=== PATIENT | male | born 1950 | race Caucasian/White ===

== ENCOUNTER 2020-04-28 13:47 | Emergency (ER) | payer MEDICARE, BC ==
[2020-04-28] MEDS ORDERED: Aspirin 81 MG Tab.Chew PO ONE (14:59)
[2020-04-28] MEDS ORDERED: Sodium Chloride 0.9% 10 ML Syringe FLUSH PRN (14:59)
--- NOTE | 2020-04-28 15:11 | EDM.PDOC ---
<Isaac Hoskins Adriana - Last Filed: 04/28/20 14:56> ED HPI GENERAL MEDICAL PROBLEM - General Chief Complaint: Chest Pain Stated Complaint: CHEST PAIN Time Seen by Provider: 04/28/20 14:06 - History of Present Illness INITIAL COMMENTS - FREE TEXT/NARRATIVE: Patient is a 70 year-old white male that comes to the emergency department today due to complaints of new onset chest pain. Patient has no personal history of cardiac disease or complication. However, there is a strong family history of cardiac and vascular disease with his grandfather dying of an SD at age 70, his father at age 66 after his 3rd SD, and his younger brother at age 48 after 1 SD. His grandmother of a brain aneurism at age 74. Prior to today patient has never experiences chest pain. He noticed the pain the morning around 0200 when he woke up to go to work. He felt the pain in his back initially and though that he had slept wrong last night. The pain became more prominent and localied in his left chest after going to work. 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 Patient denies pain in his neck, jaw, or radiating to his left arm. Denies any N/V/D or other abdominal discomfort. Denies becoming diaphoretic. Denies difficulty voiding. Patient denies any recent heavy lifting or strenuous exercise physical activity. Patient denies smoking and drinks 1 glass of wine with his supper each evening. He drinks 2 cups of coffee each morning. He has a history of diverticulitis with a 12 inch bowel resection in 2011 as well as bilateral inguinal hernia repair. He has had no complications from these procedures. Left Chest Pain Score (Numeric/FACES): 3 - Related Data Allergies Allergy/AdvReac Type Severity Reaction Status Date / Time No Known Allergies Allergy Verified 04/28/20 14:04 Home Meds: Home Meds Levothyroxine 25 mcg PO QAM 07/20/14 [History] Omeprazole [Prilosec] 20 mg PO BID 07/20/14 [History] Simvastatin [Zocor] 40 mg PO DAILY 07/20/14 [History] Multivitamin [Poly-Vitamin] 1 tab PO DAILY 10/07/16 [History] Past Medical History HEENT History: Reports: Cataract, Impaired Vision Other HEENT History: wears eyeglasses Cardiovascular History: Reports: High Cholesterol Respiratory History: Reports: TB Other Respiratory History: Severe Snoring with witnessed apnea Gastrointestinal History: Reports: Diverticulosis, GERD Other Gastrointestinal History: bilateral hernias Genitourinary History: Reports: Prostate Disorder Musculoskeletal History: Reports: None Neurological History: Reports: None Psychiatric History: Reports: None Endocrine/Metabolic History: Reports: Hypothyroidism Oncologic (Cancer) History: Reports: Prostate Other Oncologic History: radiation - Infectious Disease History Infectious Disease History: Reports: Chicken Pox, Measles, Mumps - Past Surgical History HEENT Surgical History: Reports: Adenoidectomy, Tonsillectomy GI Surgical History: Reports: Colonoscopy, Hernia, Inguinal, Other (See Below) Other GI Surgeries/Procedures: colon resection--12" removed, non-healing diverticulitis. Hernia repair. Male Surgical History: Reports: Prostate Biopsy, Other (See Below) Other Male Surgeries/Procedures: radiation Tx's. Social & Family History - Tobacco Use Smoking Status *Q: Never Smoker Second Hand Smoke Exposure: No - Caffeine Use Caffeine Use: Reports: Coffee - Alcohol Use Days Per Week of Alcohol Use: 7 Number of Drinks Per Day: 1 Total Drinks Per Week: 7 - Recreational Drug Use Recreational Drug Use: No ED ROS GENERAL - Review of Systems Review Of Systems: See Below Constitutional: Reports: No Symptoms Respiratory: Reports: No Symptoms Cardiovascular: Reports: Chest Pain (localized left chest) GI/Abdominal: Reports: No Symptoms : Reports: No Symptoms Musculoskeletal: Reports: No Symptoms Skin: Reports: No Symptoms Neurological: Reports: No Symptoms Psychiatric: Reports: No Symptoms ED EXAM, GENERAL - Physical Exam Exam: See Below Exam Limited By: No Limitations General Appearance: Alert, WD/WN, No Apparent Distress Head: Atraumatic Neck: Normal Inspection Respiratory/Chest: No Respiratory Distress, Lungs Clear, Normal Breath Sounds, No Accessory Muscle Use Cardiovascular: Normal Peripheral Pulses, No Edema, No Gallop, No JVD, No Murmur, No Rub. No: JVD, Bradycardia, Tachycardia, Extra Beats Peripheral Pulses: 2+: Radial (L), Radial (R) GI/Abdominal: Normal Bowel Sounds, Soft, Non-Tender Extremities: Normal Inspection, Normal Range of Motion, Non-Tender, No Pedal Edema, Normal Capillary Refill Neurological: Alert, Oriented, CN II-XII Intact, Normal Cognition, Normal Gait, Normal Reflexes, No Motor/Sensory Deficits Psychiatric: Normal Affect, Normal Mood Skin Exam: Warm, Dry, Intact, Normal Color, No Rash EKG INTERPRETATION EKG Date: 04/28/20 Time: 13:57 Rhythm: NSR EKG Interpretation Comments: above 1mm ST depression V4-V5 Course - Orders/Labs/Meds Orders: Will order CBC, CMP, TROP, EKG, & CXR Departure - Departure Disposition: Home, Self-Care 01 Clinical Impression: Atypical chest pain Strain of chest wall Qualifiers: Encounter type: initial encounter Qualified Code(s): S29.011A - Strain of muscle and tendon of front wall of thorax, initial encounter Referrals: Yuan Beverly MD [Primary Care Provider] - Forms: ED Department Discharge Additional Instructions: Avoid heavy lifting for the remainder of this week. Tylenol or ibuprofen if needed, alternate ice and heat as needed. Follow up with your regular medical provider if symptoms do not resolve over the next few days as expected. Return to ED as needed if symptoms worsening in any way. Sepsis Event Note (ED) - Evaluation Sepsis Screening Result: No Definite Risk <Del Graham - Last Filed: 04/28/20 17:46> ED ROS GENERAL - Review of Systems Cardiovascular: Denies: Lightheadedness Neurological: Denies: Dizziness, Numbness, Tingling, Weakness ED EXAM, GENERAL - Physical Exam Cardiovascular: Other (mild tenderness L lateral chest wall, otherwise nontender) Extremities: No: Pedal Edema, Leg Pain, Redness Course - Vital Signs Last Recorded V/S: Last Vital Signs Temp 98.7 F 04/28/20 13:50 Pulse 72 04/28/20 13:50 Resp 16 04/28/20 13:50 BP Pulse Ox 95 04/28/20 13:50 - Orders/Labs/Meds Orders: Active Orders 24 hr Category Date Time Status EKG 12 Lead [EKG Documentation Completion] [RC] STAT Care 04/28/20 14:59 Active Peripheral IV Care [RC] . DIRECTED Care 04/28/20 14:59 Active Sodium Chloride 0.9% [Saline Flush] Med 04/28/20 14:59 Active 10 ml FLUSH ASDIRECTED PRN Peripheral IV Insertion Adult [OM.PC] Stat Oth 04/28/20 14:59 Ordered Medication Orders Sodium Chloride (Saline Flush) 10 ml FLUSH ASDIRECTED PRN PRN Reason: Keep Vein Open Last Admin: 04/28/20 14:05 Dose: 10 ml Documented by: JOSE C Labs: Laboratory Tests 04/28/20 04/28/20 04/28/20 Range/Units 14:05 14:05 16:54 WBC 6.21 (4.23-9.07) K/mm3 RBC 5.28 (4.63-6.08) M/mm3 Hgb 16.4 (13.7-17.5) gm/dl Hct 47.7 (40.1-51.0) % MCV 90.3 (79.0-92.2) fl MCH 31.1 (25.7-32.2) pg MCHC 34.4 (32.2-35.5) g/dl RDW Std Deviation 39.9 (35.1-43.9) fL Plt Count 240 (163-337) K/mm3 MPV 9.9 (9.4-12.3) fl Neut % (Auto) 70.5 H (34.0-67.9) % Lymph % (Auto) 17.7 L (21.8-53.1) % [place] % (Auto) 10.1 (5.3-12.2) % Eos % (Auto) 1.1 (0.8-7.0) Baso % (Auto) 0.3 (0.1-1.2) % Neut # (Auto) 4.37 (1.78-5.38) K/mm3 Lymph # (Auto) 1.10 L (1.32-3.57) K/mm3 [place] # (Auto) 0.63 (0.30-0.82) K/mm3 Eos # (Auto) 0.07 (0.04-0.54) K/mm3 Baso # (Auto) 0.02 (0.01-0.08) K/mm3 Sodium 140 (136-145) mEq/L Potassium 3.5 (3.5-5.1) mEq/L Chloride 103 (98-107) mEq/L Carbon Dioxide 27 (21-32) mEq/L Anion Gap 13.5 (5-15) BUN 11 (7-18) mg/dL Creatinine 1.0 (0.7-1.3) mg/dL Est Cr Clr Drug Dosing 69.96 mL/min Estimated GFR (MDRD) > 60 (>60) mL/min BUN/Creatinine Ratio 11.0 L (14-18) Glucose 130 H (83-115) mg/dL Calcium 8.9 (8.5-10.1) mg/dL Total Bilirubin 0.6 (0.2-1.0) mg/dL AST 25 (15-37) U/L ALT 47 (16-63) U/L Alkaline Phosphatase 130 H (46-116) U/L Troponin I < 0.017 < 0.017 (0.00-0.056) ng/mL Total Protein 7.3 (6.4-8.2) g/dl Albumin 4.0 (3.4-5.0) g/dl Globulin 3.3 gm/dL Albumin/Globulin Ratio 1.2 (1-2) Meds: Medications Generic Name Dose Route Start Last Admin Trade Name Freq PRN Reason Stop Dose Admin Sodium Chloride 10 ml 04/28/20 14:59 04/28/20 14:05 Saline Flush FLUSH 10 ml ASDIRECTED PRN Administration Keep Vein Open Discontinued Medications Generic Name Dose Route Start Last Admin Trade Name Freq PRN Reason Stop Dose Admin Aspirin 324 mg 04/28/20 14:59 04/28/20 15:56 Aspirin PO 04/28/20 15:00 324 mg ONETIME ONE Administration - Re-Assessments/Exams Free Text/Narrative Re-Assessment/Exam: 04/28/20 17:00 Initial hx and exam was done by GAIL Brown student. II agree with hx and exam as documented. I have also interviewed and examined patient. Initial trop was good. CXR, EKG good. Will check a repeat trop. 04/28/20 17:43. repeat trop nl. Patient has been resting comfortably while here in the ED. He did shovel some dirt 3 days ago. The pain is worse with deep breathing and certain types of movement. Discharge instr. as documented. Departure - Departure Time of Disposition: 17:39 Condition: Fair Sepsis Event Note (ED) - Focused Exam Vital Signs: Vital Signs Temp Pulse Resp Pulse Ox 04/28/20 13:50 98.7 F 72 16 95 - My Orders Last 24 Hours: My Active Orders 04/28/20 14:59 EKG 12 Lead [EKG Documentation Completion] [RC] STAT Peripheral IV Care [RC] . DIRECTED Sodium Chloride 0.9% [Saline Flush] 10 ml FLUSH ASDIRECTED PRN Peripheral IV Insertion Adult [OM.PC] Stat - Assessment/Plan Last 24 Hours: My Active Orders 04/28/20 14:59 EKG 12 Lead [EKG Documentation Completion] [RC] STAT Peripheral IV Care [RC] . DIRECTED Sodium Chloride 0.9% [Saline Flush] 10 ml FLUSH ASDIRECTED PRN Peripheral IV Insertion Adult [OM.PC] Stat
--- NOTE | 2020-04-28 15:43 | CR ---
Chest: Single AP view of the chest was obtained. Comparison: Previous chest x-ray of 07/20/14 Heart size and mediastinum are normal. Lungs are clear with no acute parenchymal change. Bony structures are grossly intact. Impression: 1. Nothing acute is seen on AP chest x-ray. Diagnostic code #1 This report was dictated in MDT
[2020-04-28] MEDS ORDERED: HYDROmorphone 0.5 MG/0.5 ML Syringe IVPUSH ONE (16:46)
[2020-04-28 18:08] VITALS: BP 115/94; PULSE 62
== END 2020-04-28 17:55 | disposition home or self-care (01) ==
LOC: JD.ED 13:47
DX: S29.011A Strain of muscle and tendon of front wall of thorax, initial encounter (principal); E78.00 Pure hypercholesterolemia, unspecified; K21.9 Gastro-esophageal reflux disease without esophagitis; E03.9 Hypothyroidism, unspecified; Z79.899 Other long term (current) drug therapy; X50.9XXA Other and unspecified overexertion or strenuous movements or postures, initial encounter
CPT/HCPCS: 36415; 71045; 80053; 84484; 85025; 93005; 99285; A9270

== ENCOUNTER 2021-02-23 15:51 | Emergency (ER) | payer MEDICARE, BC ==
--- NOTE | 2021-02-23 16:35 | EDM.PDOC ---
ED HPI GENERAL MEDICAL PROBLEM - General Chief Complaint: Chest Pain Stated Complaint: CHEST PAIN Time Seen by Provider: 02/23/21 16:26 Source of Information: Reports: Patient, RN Notes Reviewed History Limitations: Reports: No Limitations - History of Present Illness INITIAL COMMENTS - FREE TEXT/NARRATIVE: Patient is a 70-year-old male presenting to the emergency department with complaints of mid chest pain. He reports that around 9:00 this morning he lifted some heavy 2-1/2 gallon jugs of juice. He took a nap and woke around 1300. He reports that upon waking he did not have the pain, however when he started moving he experienced pain throughout his anterior chest. He reports the area is tender when he pushes on it and worse with deep breathing. When he moves his arms, it "pulls on the area ". Denies any significant cardiac history, however he does have a fairly strong family history of cardiac disease. He denies any shortness of breath or diaphoresis associated with this. Reports that he went to [employer] and when the pain still persisted, he decided he should come to the ER to get it checked out. Vital signs as documented by triage nurse on downtime paperwork were normal. - Related Data Allergies Allergy/AdvReac Type Severity Reaction Status Date / Time No Known Allergies Allergy Verified 04/28/20 14:04 Home Meds: Home Meds Levothyroxine 25 mcg PO QAM 07/20/14 [History] Omeprazole [Prilosec] 20 mg PO BID 07/20/14 [History] Simvastatin [Zocor] 40 mg PO DAILY 07/20/14 [History] Multivitamin [Poly-Vitamin] 1 tab PO DAILY 10/07/16 [History] Past Medical History HEENT History: Reports: Cataract, Impaired Vision Other HEENT History: wears eyeglasses Cardiovascular History: Reports: High Cholesterol Respiratory History: Reports: TB Other Respiratory History: Severe Snoring with witnessed apnea Gastrointestinal History: Reports: Diverticulosis, GERD Other Gastrointestinal History: bilateral hernias Genitourinary History: Reports: Prostate Disorder Musculoskeletal History: Reports: None Neurological History: Reports: None Psychiatric History: Reports: None Endocrine/Metabolic History: Reports: Hypothyroidism Oncologic (Cancer) History: Reports: Prostate Other Oncologic History: radiation - Infectious Disease History Infectious Disease History: Reports: Chicken Pox, Measles, Mumps - Past Surgical History HEENT Surgical History: Reports: Adenoidectomy, Tonsillectomy GI Surgical History: Reports: Colonoscopy, Hernia, Inguinal, Other (See Below) Other GI Surgeries/Procedures: colon resection--12" removed, non-healing diverticulitis. Hernia repair. Male Surgical History: Reports: Prostate Biopsy, Other (See Below) Other Male Surgeries/Procedures: radiation Tx's. Social & Family History - Caffeine Use Caffeine Use: Reports: Coffee ED ROS GENERAL - Review of Systems Review Of Systems: See Below Constitutional: Reports: No Symptoms HEENT: Reports: No Symptoms Respiratory: Denies: Shortness of Breath, Cough Cardiovascular: Reports: Chest Pain. Denies: Dyspnea on Exertion, Lightheadedness, Palpitations Endocrine: Reports: No Symptoms GI/Abdominal: Reports: No Symptoms : Reports: No Symptoms Musculoskeletal: Reports: Other (chest wall tenderness) Skin: Reports: No Symptoms Neurological: Reports: No Symptoms Psychiatric: Reports: No Symptoms Hematologic/Lymphatic: Reports: No Symptoms Immunologic: Reports: No Symptoms ED EXAM, GENERAL - Physical Exam Exam: See Below Exam Limited By: No Limitations General Appearance: Alert, WD/WN, No Apparent Distress Respiratory/Chest: No Respiratory Distress, Lungs Clear, Normal Breath Sounds, No Accessory Muscle Use, Other (tenderness to palpation throughout the anterior chest wall) Cardiovascular: Normal Peripheral Pulses, Regular Rate, Rhythm, No Edema, No Gallop, No JVD, No Murmur, No Rub Neurological: Alert, Oriented, CN II-XII Intact, Normal Cognition, Normal Gait, Normal Reflexes, No Motor/Sensory Deficits Psychiatric: Normal Affect, Normal Mood Skin Exam: Warm, Dry, Intact, Normal Color, No Rash #1 Interpretation EKG Date: 02/23/21 Time: 16:08 Rhythm: NSR Rate (Beats/Min): 77 [place]: RAD-Right [place] Deviation P-Wave: Present QRS: Normal ST-T: Normal QT: Normal EKG Interpretation Comments: EKG interpreted by Dr. Jodi MD. Course - Orders/Labs/Meds Labs: Laboratory Tests 02/23/21 02/23/21 02/23/21 Range/Units 16:46 16:46 16:46 WBC 5.70 (4.23-9.07) K/mm3 RBC 5.24 (4.63-6.08) M/mm3 Hgb 16.5 (13.7-17.5) gm/dl Hct 47.8 (40.1-51.0) % MCV 91.2 (79.0-92.2) fl MCH 31.5 (25.7-32.2) pg MCHC 34.5 (32.2-35.5) g/dl RDW Std Deviation 39.8 (35.1-43.9) fL Plt Count 230 (163-337) K/mm3 MPV 9.8 (9.4-12.3) fl Neut % (Auto) 71.4 H (34.0-67.9) % Lymph % (Auto) 16.5 L (21.8-53.1) % [place] % (Auto) 9.5 (5.3-12.2) % Eos % (Auto) 1.8 (0.8-7.0) Baso % (Auto) 0.4 (0.1-1.2) % Neut # (Auto) 4.08 (1.78-5.38) K/mm3 Lymph # (Auto) 0.94 L (1.32-3.57) K/mm3 [place] # (Auto) 0.54 (0.30-0.82) K/mm3 Eos # (Auto) 0.10 (0.04-0.54) K/mm3 Baso # (Auto) 0.02 (0.01-0.08) K/mm3 D-Dimer, Quantitative < 0.19 L (0.19-0.50) mg/L Sodium 141 (136-145) mEq/L Potassium 4.0 (3.5-5.1) mEq/L Chloride 103 (98-107) mEq/L Carbon Dioxide 30 (21-32) mEq/L Anion Gap 12.0 (5-15) BUN 12 (7-18) mg/dL Creatinine 1.1 (0.7-1.3) mg/dL Est Cr Clr Drug Dosing TNP Estimated GFR (MDRD) > 60 (>60) mL/min BUN/Creatinine Ratio 10.9 L (14-18) Glucose 115 H (70-99) mg/dL Calcium 8.9 (8.5-10.1) mg/dL Magnesium 2.2 (1.8-2.4) mg/dL Total Bilirubin 0.5 (0.2-1.0) mg/dL AST 21 (15-37) U/L ALT 35 (16-63) U/L Alkaline Phosphatase 131 H (46-116) U/L Troponin I < 0.017 (0.00-0.056) ng/mL Total Protein 7.2 (6.4-8.2) g/dl Albumin 4.1 (3.4-5.0) g/dl Globulin 3.1 gm/dL Albumin/Globulin Ratio 1.3 (1-2) Meds: Medications Discontinued Medications Generic Name Dose Route Start Last Admin Trade Name Jackie PRN Reason Stop Dose Admin Aspirin 324 mg 02/23/21 16:37 02/23/21 16:55 Aspirin 81 Mg Tab.Chew PO 02/23/21 16:38 324 mg ONETIME ONE Administration - Re-Assessments/Exams Free Text/Narrative Re-Assessment/Exam: Patient is a 70-year-old male presenting to the emergency department with complaints of pain and tenderness to his anterior chest wall. He reports lifting some heavy jugs of rhubarb juice for wine making around 9:00 this morning. After taking a nap, he awoke pain-free but once he started moving around he felt discomfort in his chest. He reports his chest wall is tender to palpation and it worsens with deep breathing. If he lifts his arms it "pulls in the area ". He has no significant cardiac history but does have apparent fairly strong family history of cardiac disease. On exam, he does have diffuse tenderness to the anterior chest wall. Exam is otherwise unremarkable. I have ordered cardiac work-up including blood work, EKG, and chest x-ray. I will give him 324 mg of chewable aspirin. 02/23/21 17:37 Hematology is unremarkable. Troponin and D-dimer are both undetectable. EKG shows normal sinus rhythm at 77 with no acute changes. Chest x-ray is normal. Given that the onset of patient's chest discomfort was approximately 4 hours prior to arrival to ER, we would expect to see some elevation in troponin if this was cardiac in nature. I suspect he is suffering from chest wall muscle strain related to lifting the heavy jugs this morning. We will discharge him home. Discussed return precautions. Discharge instructions as documented. Departure - Departure Time of Disposition: 17:37 Disposition: Home, Self-Care 01 Condition: Good Clinical Impression: Strain of chest wall Qualifiers: Encounter type: initial encounter Qualified Code(s): S29.011A - Strain of muscle and tendon of front wall of thorax, initial encounter Instructions: Nonspecific Chest Pain, Adult, [id number] Referrals: Yuan Beverly MD [Primary Care Provider] - Forms: ED Department Discharge Additional Instructions: You were seen in the emergency department today for evaluation with regards to chest discomfort that started after waking from a nap around 1 PM this afternoon. Work-up included blood work, EKG, and a chest x-ray. Results of yo ur work-up were found to be normal. You are not having a heart attack and you do not have a blood clot in your lungs. Your pain is likely due to muscle strain related to the heavy lifting you did earlier in the day. Recommend Tylenol ibuprofen as needed for discomfort. You may apply heat to your chest wall to help relax the muscles. If you should experience any new or worsening symptoms, please not hesitate to return to the emergency department for reevaluation.
[2021-02-23] MEDS ORDERED: Aspirin 81 MG Tab.Chew PO ONE (16:37)
--- NOTE | 2021-02-23 16:55 | CR ---
Chest: 2 views of the chest were obtained. Comparison: Prior chest x-ray of 04/28/20. Heart size and mediastinum are normal. Lungs are clear with no acute parenchymal change. Bony structure shows nothing acute. Incidental scoliosis is noted. Impression: 1. Nothing acute is seen on 2 view chest x-ray. Diagnostic code #2
== END 2021-02-23 17:47 | disposition home or self-care (01) ==
LOC: JD.ED 15:51
DX: S29.011A Strain of muscle and tendon of front wall of thorax, initial encounter (principal); E78.00 Pure hypercholesterolemia, unspecified; E03.9 Hypothyroidism, unspecified; K21.9 Gastro-esophageal reflux disease without esophagitis; Z79.899 Other long term (current) drug therapy; X50.1XXA Overexertion from prolonged static or awkward postures, initial encounter
CPT/HCPCS: 36415; 71046; 80053; 83735; 84484; 85025; 85379; 93005; 99285; A9270; 93010; 99283

== ENCOUNTER 2022-09-14 11:49 | Emergency (ER) | payer MEDICARE, BC ==
[2022-09-14 12:22] VITALS: BP 112/77; PULSE 81
[2022-09-14] MEDS ORDERED: Sodium Chloride 0.9% 10 ML Syringe FLUSH PRN (12:34)
[2022-09-14] MEDS ORDERED: Alum Hydrox/Mag Hydrox/Simeth 30 ML, Lidocaine 2% 15 ML PO ONE ×2 (12:35)
[2022-09-14] MEDS ORDERED: Aspirin 81 MG Tab.Chew PO ONE (12:50)
== END 2022-09-14 14:48 | disposition home or self-care (01) ==
LOC: JD.ED 11:49
DX: R07.89 Other chest pain (principal); E78.00 Pure hypercholesterolemia, unspecified; Z79.899 Other long term (current) drug therapy
CPT/HCPCS: 36415; 71045; 80053; 84484; 85025; 93005; 99285; A9270; J3490